=== PATIENT | male | born 1970 | race African-American/Black ===

== ENCOUNTER → 2021-11-09 | Outpatient (CLI) | payer OTHER ==
--- NOTE | 2021-11-09 09:23 | US ---
EXAMINATION TYPE: US abdomen complete DATE OF EXAM: 11/09/2021 COMPARISON: NONE CLINICAL HISTORY: R10.9 UNSPECIFIED ABDOMINAL PAIN. Left flank pain EXAM MEASUREMENTS: Liver Length: 14.3 cm Gallbladder Wall: 0.2 cm CBD: 0.4 cm Spleen: 11.0 cm Right Kidney: 11.6 x 5.6 x 7.1 cm Left Kidney: 10.4 x 5.3 x 5.5 cm Pancreas: obscured by overlying midline bowel gas Liver: wnl Gallbladder: wnl Evidence for sonographic Madison's sign: no CBD: visualized portions wnl, limited by overlying bowel gas Spleen: wnl Right Kidney: wnl Left Kidney: wnl Upper IVC: wnl Abd Aorta: wnl The liver is homogenous. The intrahepatic portion of the IVC and proximal abdominal aorta are within normal limits. There is no evidence of cholelithiasis. Common bile duct is unremarkable. The visu alized portions of the pancreas are homogenous. The spleen is unremarkable. Kidneys are symmetric a nd free of hydronephrosis. No renal lesions are seen. IMPRESSION: No discrete abnormality appreciated at this time.
== END | disposition home or self-care (01) ==
LOC: RADUSWWP 08:43
PROVIDERS: ATTEND Family Medicine
DX: R10.9 Unspecified abdominal pain (principal)
CPT/HCPCS: 76700

== ENCOUNTER → 2021-11-16 | Outpatient (CLI) | payer OTHER ==
--- NOTE | 2021-11-16 15:32 | XR ---
EXAMINATION TYPE: XR shoulder complete LT DATE OF EXAM: 11/16/2021 CLINICAL HISTORY: Chronic left shoulder pain. TECHNIQUE: Three views of the left shoulder are obtained. COMPARISON: Outside left shoulder x-ray August 01, 2021. FINDINGS: There is no acute fracture/dislocation evident in the left shoulder. Moderate narrowing an d spurring left acromioclavicular joint. Slight downsloping distal acromion. Subchondral cystic lynn e superior lateral humeral head. Suggestion of bony fragmentation on the externally rotated view rais es concern for Hill-Sachs type deformity. Correlate for history of anterior shoulder dislocation. No associated bony Bankart lesion. The visualized ribs are intact . IMPRESSION: As above.
== END | disposition home or self-care (01) ==
LOC: RADMRIMAIN 10-26 10:34
PROVIDERS: ATTEND Psychiatry & Neurology Neurology
DX: Z86.73 Personal history of transient ischemic attack (TIA), and cerebral infarction without residual deficits (principal)

== ENCOUNTER → 2021-12-09 | Outpatient (CLI) | payer OTHER | END | disposition home or self-care (01) | LOC: RADMRIMAIN 08:37 | PROVIDERS: ATTEND Family Medicine | DX: Z53.9 Procedure and treatment not carried out, unspecified reason (principal) ==

== ENCOUNTER → 2021-12-27 | Outpatient (CLI) | payer OTHER ==
--- NOTE | 2021-12-27 18:41 | MR ---
EXAMINATION TYPE: MR brain wo con DATE OF EXAM: 12/27/2021 COMPARISON: NONE HISTORY: 51-year-old male [id number], F/U stroke which occurred 07/26/2018. TECHNIQUE: Multiplanar, multisequence images of the brain and brainstem were acquired without IV con trast. Diffusion-weighted imaging is performed. FINDINGS: Motion limited exam. Fast brain protocol was utilized. No evidence for acute infarction, hemorrhage, mass, mass effect, midline shift, herniation, effacemen t of basal cisterns, or extra-axial fluid collection. The ventricles and sulci are age-appropriate. Major intracranial flow voids are intact. T2/FLAIR weighted sequences show severe scattered bright white matter change in the subcortical, deep , and periventricular regions of both cerebral hemispheres. More confluent changes in the periatrial white matter regions. Small area of encephalomalacia with surrounding gliosis within the left centrum semiovale compatible with prior white matter infarct. Similar smaller area in the subcortical region anteromedial left frontal lobe. Additional abnormal foci of increased signal are present within the bilateral paramedian fely. Midline structures demonstrate normal morphology. The craniocervical junction is normal. Mild mucosal thickening ethmoid air cells. Trace mucosal thickening maxillary sinuses. Globes are int act. IMPRESSION: 1. Moderate to severe burden of T2 bright white matter change in both cerebral hemispheres and also w ithin the bilateral paramedian fely. Old white matter infarct left centrum semiovale. Correlate for s ignificant, age accelerated burden of chronic small vessel ischemic disease. Arteriosclerosis and unc ontrolled hypertension are in the differential. Alternatively, vasculitis, Lyme's disease, long-stand ing chronic migraines, and demyelinating disease are considerations as well. Clinically correlate. 2. No acute intracranial abnormality seen.
--- NOTE | 2021-12-28 21:12 | MR ---
EXAMINATION TYPE: MR shoulder LT wo con DATE OF EXAM: 12/27/2021 COMPARISON: Radiograph 11/16/2021 HISTORY: 51-year-old male Left shoulder pain and stiffness for 2 years. TECHNIQUE: Multiplanar, multisequence imaging of the left shoulder is performed without contrast. FINDINGS: There is an intrasubstance tear of the intracapsular portion of the lung. Biceps tendon on sagittal T 2 FS sequence. Mild tenosynovial fluid along the bicipital groove. Heterogeneous signal of the subscapularis tendon with reactive bony irregularity and cystic change at the lesser tuberosity. The majority of the subscapularis tendon remains intact. Moderate degenerative joint space narrowing and marginal spurring and capsular hypertrophy at the acr omioclavicular joint. Mild mass effect onto the underlying myotendinous junction of the supraspinatus . No effusion within the subacromial/subdeltoid bursa. Trace thickening is present of the bursa. There is heterogeneous signal of both supraspinatus and infraspinatus tendons with extensive bony irr egularity of the greater tuberosity. There is a small intrasubstance tear at the footprint of the anterior supraspinatus tendon measuring 5 x 4 mm. Bursal sided fraying is present throughout. At the junction of the supraspinatus and infraspinatus tendons, there is an articular sided tear ivory uring 1.3 cm long and 1.0 cm AP, coronal image 16 and sagittal image 10. This approaches approximatel y 50% of the tendon thickness. No definite full-thickness extension is seen. No atrophy of the rotator cuff musculature. Some degenerative signal within the superior labrum. No discrete labral tear or para labral cyst give n nonarthrographic technique. No significant joint effusion. The glenohumeral joint appears intact. Excessive patient motion limiting the exam. Possible shallow Hill-Sachs deformity on axial images 20 through 22. Further clinical correlation recommended. No os acromiale. Patchy red marrow hyperplasia in the seen in the setting of anemia, obesity, smoking , chronic disease. IMPRESSION: 1. Marked diffuse rotator cuff tendinosis. Small intrasubstance tear at the footprint of the anterior supraspinatus tendon measuring 5 x 4 mm. Bursal sided fraying is present throughout. 2. Articular sided tear at the junction of the supraspinatus and infraspinatus tendons measuring 1.3 x 1.0 cm. The tear approaches 50% of the tendon thickness. No full-thickness extension seen at this t robert or muscle atrophy. 3. Moderate AC joint OA with mild impingement onto the underlying cuff. 4. Intrasubstance tear involving the intracapsular portion of the long head biceps tendon. Associated tenosynovitis. 5. Patient motion limiting the exam. Possible shallow Hill-Sachs deformity versus extensive bony irre gularity relating to the rotator cuff tendinopathy. Correlate for any potential history of prior trau matic anterior shoulder dislocation.
== END | disposition home or self-care (01) ==
LOC: RADMRIMAIN 11:36
PROVIDERS: ATTEND Nurse Practitioner Family
DX: M79.602 Pain in left arm (principal); M62.838 Other muscle spasm; M79.2 Neuralgia and neuritis, unspecified; Z86.73 Personal history of transient ischemic attack (TIA), and cerebral infarction without residual deficits
CPT/HCPCS: 70551

== ENCOUNTER 2022-01-30 10:40 | Day surgery (SDC) | payer MEDICARE, OTHER ==
[2022-01-25 11:10] VITALS: BMI 37.1
[~2022-01-30 10:40] MED LIST: DEXAMETHASONE SOD PHOSPHATE 4 MG/ML 1 ML VIAL IV ONE; HYDROmorphone 0.5 MG/0.5 ML SYRINGE IVP PRN; LACTATED RINGERS 1,000 ML IV SCH; MIDAZOLAM 2 MG/2 ML VIAL IV PRN; ONDANSETRON 4 MG/2 ML VIAL IVP ONE; Pre Op ABX Message 1 EACH MISC MISCELLANE ONE; SCOPOLAMINE 1 MG/72 HR PATCH TRANSDERM ONE
[2022-01-30 12:09] VITALS: TEMP 98.6
[2022-01-30] MEDS ORDERED: BUPIVACAINE (PF) 0.5% 30 ML VIAL MISCELLANE ONE ×2 (12:38→13:10)
[2022-01-30] MEDS ORDERED: LIDOCAINE 1% INJ 10MG/ML (20 ML MDV) SQ ONE ×2 (12:39→13:10)
[2022-01-30] MEDS ORDERED: KETAMINE 10 MG/ML 20 ML VIAL ONE (12:58)
[2022-01-30] MEDS ORDERED: fentaNYL (PF) 50 MCG/ML 2 ML AMP ONE (12:58)
[2022-01-30] MEDS ORDERED: MIDAZOLAM 2 MG/2 ML VIAL ONE (12:58)
[2022-01-30] MEDS ORDERED: PROPOFOL 10 MG/ML 20 ML VIAL IV ONE (12:58)
--- NOTE | 2022-01-30 13:50 | P.OP ---
Date of Procedure: 01/30/22 Preoperative Diagnosis: Left carpal tunnel syndrome Postoperative Diagnosis: Same Procedure(s) Performed: Left endoscopic carpal tunnel release Anesthesia: MAC, local Surgeon: Lourdes Hoang Estimated Blood Loss (ml): 2 Condition: stable Disposition: PACU Indications for Procedure: The patient is a 52-year-old male who has symptoms of median nerve compression. He has numbness and tingling in the median nerve distribution and nighttime symptoms. He also has a history of a previous stroke on the left side with some residual numbness and weakness of the left side. We had a long discussion about his treatment options and he would like to proceed with surgical release of the carpal tunnel. He understands that the deficit from the CVA will not resolve from a carpal tunnel release. Description of Procedure: The patient, operative extremity, and procedure were identified in the preoperative holding area. After informed consent was obtained the patient was brought back to the operating room where local block was performed with 1% lidocaine with epinephrine and half percent Marcaine. Following this the extremity was prepped and draped in normal sterile fashion with a tourniquet along the patient's brachium. After formal timeout was performed the tourniquet was inflated. A transverse incision just ulnar to the palmaris longus tendon was made in the proximal wrist crease. Dissection was carried down to the forearm fascia with care taken to protect cutaneous nerves. This was incised and released proximally about a centimeter. The dilator and measuring tool were then inserted into the carpal tunnel. A hemostat was utilized to scrape the undersurface of the carpal tunnel. The micro-air device was then inserted into the carpal tunnel. The transverse carpal ligament was clearly identified without any overlying soft tissue. The distal end of the first carpal ligament was scored with a blade and then completely transected. The remainder of the transverse carpal ligament was then released in a retrograde fashion. Once the blade was still noted the cannula was again inserted and the cut ends of the transverse carpal ligament were visualized. A hemostat was inserted to confirm release of the entire carpal tunnel. The tourniquet was then let down h emostasis was achieved and the wound was closed with Steri-Strips and skin glue. Tegaderm and a nonstick material were applied over top. Patient was aroused by the anesthesia team and brought back to PACU in stable condition
[2022-01-30 14:53] VITALS: BP 140/85; PULSE 74; RESP 16
== END 2022-01-30 15:40 | disposition home or self-care (01) ==
LOC: OR 10:40
PROVIDERS: ATTEND Orthopaedic Surgery Hand Surgery
DX: G56.02 Carpal tunnel syndrome, left upper limb (principal); I69.354 Hemiplegia and hemiparesis following cerebral infarction affecting left non-dominant side; I69.398 Other sequelae of cerebral infarction; R20.2 Paresthesia of skin; I10 Essential (primary) hypertension; E78.5 Hyperlipidemia, unspecified; Z79.899 Other long term (current) drug therapy
CPT/HCPCS: 29848; J2250; J1100; J2405; J2001; J3010; J2704

== ENCOUNTER → 2022-03-06 | Outpatient (CLI) | payer MEDICARE, OTHER ==
--- NOTE | 2022-03-07 07:09 | MR ---
MRI CERVICAL SPINE: CLINICAL HISTORY: Muscle spasticity. Left-sided weakness. Neck pain. TECHNIQUE: Multiplanar, multisequence imaging of the cervical spine is performed without IV contrast. COMPARISON: None. FINDINGS: Slightly suboptimal due to some motion artifact degradation. Sagittal images of the cervica l spine show the craniocervical junction to appear within normal limits. The cervical and upper thor acic spinal cord is normal in course, caliber, and signal. Vertebral alignment is anatomic. The [place] tebral body and intravertebral disk heights are normal. The bone marrow signal intensity is within n ormal limits. Small scattered osseous hemangiomas in the visualized upper thorax. Axial images show C2-C3 level to appear within normal limits. Axial images at C3-C4 level show uncovertebral facet degenerative change causing mild left-sided neur al foraminal narrowing. Axial images at C4-C5 through C7-T1 levels appear within normal limits. Tiny disc herniation C5-C6 le mary minimally effaces the anterior thecal sac sagittal image 8 not well visualized on axial images. IMPRESSION: Mild multilevel degenerative changes in cervical spine as detailed above.
== END | disposition home or self-care (01) ==
LOC: RADMRIMAIN 10:41
PROVIDERS: ATTEND Psychiatry & Neurology Neurology
DX: M62.838 Other muscle spasm (principal); M79.2 Neuralgia and neuritis, unspecified
CPT/HCPCS: 72141

== ENCOUNTER → 2022-03-30 | Outpatient (CLI) | payer MEDICARE, OTHER ==
--- NOTE | 2022-03-30 22:30 | MR ---
EXAMINATION TYPE: MR lumbar spine wo con DATE OF EXAM: 03/30/2022 COMPARISON: NONE HISTORY: Low back pain. TECHNIQUE: Multiplanar, multisequence imaging of the lumbar spine is performed without IV contrast. FINDINGS: Sagittal images of the lumbar spine show vertebral body heights and alignment to appear sat isfactory. Multilevel disc desiccation along with moderate disc space narrowing L3-L4 and L4-L5 level s. The conus medullaris is normal in position and signal ending at T12-L1 disc space level. Innumera ble scattered osseous hemangiomas are present. Axial images show T12-L1 level to appear within normal limits. Axial images at L1-L2 level are withi n normal limits. Axial images at L2-L3 level shows mild broad-based posterior disc protrusion with posterior annular t ear minimally effaces the anterior thecal sac. There is mild left-sided anterior inferior neural fora zafar narrowing due to foraminal disc protrusion component. Mild facet arthropathy bilaterally is see n. Axial images at L3-L4 level shows mild broad-based disc bulge with focal central disc protrusion mild ly effacing the anterior thecal sac. There is mild bilateral anterior inferior neural foraminal narro wing noted. Mild to moderate facet arthropathy bilaterally is present. Axial images at L4-L5 level shows mild central disc protrusion minimally effacing anterior thecal sac . Patent bilateral neural foramina. [id number] facet arthropathy bilaterally. Axial images at L5-S1 level show mild to moderate facet arthropathy bilaterally. Spinal canal is pres erved. Bilateral neural foramina are patent. Paraspinal muscle bulk is maintained. IMPRESSION: [id number] multilevel degenerative changes in the lumbar spine as detailed above.
== END | disposition home or self-care (01) ==
LOC: RADMRIMAIN 13:46
PROVIDERS: ATTEND Family Medicine
DX: M54.59 Other low back pain (principal)
CPT/HCPCS: 72148